=== PATIENT | female | born 1935 | race Caucasian/White ===

== ENCOUNTER 2020-09-24 14:19 | Inpatient (IN) ==
[2020-09-24] MEDS ORDERED: Ipratropium/Albuterol Neb 3 ML IH ONE (14:51)
[2020-09-24 15:10] LABS: Basophils # 0.1 K/mcL (0.0-0.2); Basophils % 0.7 %; Eosinophils # 0.5 K/mcL (0.0-0.6); Eosinophils % 6.5 %; Hematocrit 41.8 % (35.3-44.9); Hemoglobin 13.2 g/dL (11.5-15.4); Immature Granulocytes % 0.3 % (0-4); Lymphocytes # 0.7 K/mcL (0.6-4.6); Lymphocytes % 8.9 %; Mean Corpuscular HGB Conc 31.6 g/dL (31.6-35.5); Mean Corpuscular Hemoglobin 28.9 pg (28.0-33.3); Mean Corpuscular Volume 91.5 fL (83.0-100.0); Mean Platelet Volume 9.9 fL (9.4-12.4); Monocytes # 0.8 K/mcL (0.0-1.3); Monocytes % 10.6 %; Neutrophils # 5.5 K/mcL (1.6-8.9); Platelet Count 194 K/mcL (140-400); Red Blood Count 4.57 M/mcL (3.82-4.97); Red Cell Distribution Width 15.3 % (11.5-14.5); White Blood Count 7.6 K/mcL (4.3-11.1)
[2020-09-24 15:21] LABS: Bacteria,Urine Few per hpf (None-Few); Bilirubin,Urine Negative (Negative); Blood,Urine Negative (Negative); Clarity,Urine Turbid (Clear); Color,Urine Light-Yellow (Yellow); Glucose,Urine (UA) Normal (Normal); Ketones,Urine Negative (Negative); Leukocyte Esterase,Urine Small (Negative); Mucus,Urine Few per lpf (None-Few); Nitrite,Urine Negative (Negative); PH,Urine 5.5 pH Units (5.0-8.0); Protein,Urine 50 mg/dL (Neg-Trace); RBC,Urine 15-30 per hpf (0-3); Specific Gravity,Urine 1.021 (1.010-1.025); Squamous Epithelial Cell,Urine Few per hpf (None-Few); Urobilinogen,Urine Normal (Normal)
[2020-09-24 15:35] LABS: BUN/Creatinine Ratio 21 (6-26); Blood Urea Nitrogen 17 mg/dL (8-23); Calcium 8.7 mg/dL (8.6-10.3); Carbon Dioxide 25 mEq/L (23-29); Chloride 107 mEq/L (98-107); Glucose 108 mg/dL (70-105); Osmolality,Calculated 296 (280-300); Potassium 3.7 mEq/L (3.5-5.1); Sodium 142 mEq/L (136-145); Troponin I < 0.03 ng/mL (< 0.04); eGFR For African Americans > 60 (> 60); eGFR For Non-African Americans > 60 (> 60)
[2020-09-24] MEDS ORDERED: Furosemide 40 MG/4 ML VIAL IVP ONE (15:50)
[2020-09-24] MEDS ORDERED: Perflutren Lipid Microsphere 1.3 ML in 0.9 % Sodium Chloride 8.7 ML IVP PRN (17:34)
[2020-09-24 17:44] LABS: INR 2.3; Prothrombin Time 26.2 Seconds (9.4-12.1)
[2020-09-24] MEDS ORDERED: Naloxone 0.4 MG/ML INJ IVP PRN (17:55)
[2020-09-24] MEDS ORDERED: Warfarin perPT PO PRN (18:00)
[2020-09-24 19:17] LABS: Adenovirus Not Detected (Not Detect); Bordetella Pertussis Not Detected (Not Detect); Chlamydophila pneumoniae Not Detected (Not Detect); Coronavirus 229E Not Detected (Not Detect); Coronavirus HKU1 Not Detected (Not Detect); Coronavirus NL63 Not Detected (Not Detect); Coronavirus OC43 Not Detected (Not Detect); Human Metapneumovirus Not Detected (Not Detect); Human Rhinovirus/Enterovirus Not Detected (Not Detect); Influenza A Subtype 2009 H1 Not Detected (Not Detect); Influenza B Not Detected (Not Detect); Mycoplasma pneumoniae Not Detected (Not Detect); Parainfluenza Virus 1 Not Detected (Not Detect); Parainfluenza Virus 2 Not Detected (Not Detect); Parainfluenza Virus 3 Not Detected (Not Detect); Parainfluenza Virus 4 Not Detected (Not Detect); Respiratory Syncytial Virus Not Detected (Not Detect); SARS-CoV-2 Not Detected (Not Detect)
[2020-09-24] MEDS ORDERED: Furosemide 40 MG/4 ML VIAL IVP SCH (21:00)
[2020-09-24] MEDS ORDERED: *HR* Warfarin 3 MG TABLET PO ONE (21:15)
[2020-09-25 02:35] LABS: Basophils # 0.1 K/mcL (0.0-0.2); Basophils % 0.7 %; Eosinophils # 0.3 K/mcL (0.0-0.6); Eosinophils % 4.9 %; Hematocrit 42.2 % (35.3-44.9); Hemoglobin 13.3 g/dL (11.5-15.4); Immature Granulocytes % 0.4 % (0-4); Lymphocytes # 0.7 K/mcL (0.6-4.6); Lymphocytes % 10.8 %; Mean Corpuscular HGB Conc 31.5 g/dL (31.6-35.5); Mean Corpuscular Hemoglobin 29.6 pg (28.0-33.3); Mean Corpuscular Volume 93.8 fL (83.0-100.0); Mean Platelet Volume 10.3 fL (9.4-12.4); Monocytes # 0.8 K/mcL (0.0-1.3); Monocytes % 11.8 %; Neutrophils # 4.9 K/mcL (1.6-8.9); Platelet Count 189 K/mcL (140-400); Red Cell Distribution Width 15.2 % (11.5-14.5); Segmented Neutrophils % 71.4 %; White Blood Count 6.9 K/mcL (4.3-11.1)
[2020-09-25 02:44] LABS: INR 2.8; Prothrombin Time 31.6 Seconds (9.4-12.1)
[2020-09-25 02:56] LABS: Calcium 8.9 mg/dL (8.6-10.3); Magnesium 1.4 mg/dL (1.6-2.6); Potassium 3.4 mEq/L (3.5-5.1)
[2020-09-25] MEDS ORDERED: allopurinoL 100 MG TABLET PO SCH (09:00)
[2020-09-25] MEDS: carvediloL 6.25 MG TABLET PO SCH ×2 (09:39→16:06)
[2020-09-25] MEDS ORDERED: Magnesium Sulfate 1 GM/102 ML PIGGYBACK IVPB ONE (11:07)
[2020-09-25 17:19] LABS: BUN/Creatinine Ratio 27 (6-26); Blood Urea Nitrogen 25 mg/dL (8-23); Calcium 8.6 mg/dL (8.6-10.3); Carbon Dioxide 30 mEq/L (23-29); Chloride 103 mEq/L (98-107); Glucose 138 mg/dL (70-105); Magnesium 1.8 mg/dL (1.6-2.6); Osmolality,Calculated 301 (280-300); Potassium 3.2 mEq/L (3.5-5.1); Sodium 142 mEq/L (136-145); eGFR For African Americans > 60 (> 60); eGFR For Non-African Americans 59 (> 60)
[2020-09-25] MEDS ORDERED: *HR* Warfarin 3 MG TABLET PO ONE (18:00)
[2020-09-26 01:39] LABS: INR 2.8; Prothrombin Time 31.6 Seconds (9.4-12.1)
[2020-09-26 01:41] LABS: Basophils # 0.1 K/mcL (0.0-0.2); Basophils % 0.8 %; Eosinophils # 0.5 K/mcL (0.0-0.6); Eosinophils % 8.1 %; Hematocrit 44.1 % (35.3-44.9); Hemoglobin 13.7 g/dL (11.5-15.4); Immature Granulocytes % 0.5 % (0-4); Lymphocytes # 0.8 K/mcL (0.6-4.6); Lymphocytes % 11.7 %; Mean Corpuscular HGB Conc 31.1 g/dL (31.6-35.5); Mean Corpuscular Hemoglobin 28.6 pg (28.0-33.3); Mean Corpuscular Volume 92.1 fL (83.0-100.0); Mean Platelet Volume 10.1 fL (9.4-12.4); Monocytes # 0.8 K/mcL (0.0-1.3); Neutrophils # 4.2 K/mcL (1.6-8.9); Platelet Count 184 K/mcL (140-400); Red Blood Count 4.79 M/mcL (3.82-4.97); Red Cell Distribution Width 15.1 % (11.5-14.5); Segmented Neutrophils % 65.9 %; White Blood Count 6.4 K/mcL (4.3-11.1)
[2020-09-26 01:54] LABS: BUN/Creatinine Ratio 27 (6-26); Blood Urea Nitrogen 25 mg/dL (8-23); Calcium 8.6 mg/dL (8.6-10.3); Carbon Dioxide 30 mEq/L (23-29); Chloride 105 mEq/L (98-107); Glucose 129 mg/dL (70-105); Osmolality,Calculated 300 (280-300); Potassium 3.7 mEq/L (3.5-5.1); Sodium 142 mEq/L (136-145); eGFR For African Americans > 60 (> 60); eGFR For Non-African Americans 57 (> 60)
[2020-09-26 06:55] VITALS: BP 135/66
[2020-09-26] MEDS: carvediloL 6.25 MG TABLET PO SCH (09:12)
[2020-09-26] MEDS ORDERED: *HR* Warfarin 3 MG TABLET PO ONE (18:00)
== END 2020-09-26 14:55 | disposition home or self-care (01) | DRG 293 ==
LOC: 3BNU 14:19 → EMEROOARM 14:19 → 3BNU 20:25
PROVIDERS: ADMIT Student in an Organized Health Care Education/Training Program; ATTEND Student in an Organized Health Care Education/Training Program

== ENCOUNTER 2021-03-10 21:38 | Observation (INO) ==
[2021-03-10 22:28] LABS: Basophils # 0.1 K/mcL (0.0-0.2); Basophils % 0.6 %; Eosinophils # 0.6 K/mcL (0.0-0.6); Eosinophils % 6.4 %; Hematocrit 43.2 % (35.3-44.9); Hemoglobin 13.4 g/dL (11.5-15.4); Immature Granulocytes % 0.7 % (0-4); Lymphocytes # 0.8 K/mcL (0.6-4.6); Lymphocytes % 8.8 %; Mean Corpuscular Hemoglobin 28.3 pg (28.0-33.3); Mean Corpuscular Volume 91.1 fL (83.0-100.0); Mean Platelet Volume 9.9 fL (9.4-12.4); Monocytes # 0.8 K/mcL (0.0-1.3); Monocytes % 8.7 %; Neutrophils # 6.5 K/mcL (1.6-8.9); Platelet Count 223 K/mcL (140-400); Red Blood Count 4.74 M/mcL (3.82-4.97); Red Cell Distribution Width 15.2 % (11.5-14.5); Segmented Neutrophils % 74.8 %; White Blood Count 8.6 K/mcL (4.3-11.1)
[2021-03-10 22:53] LABS: BUN/Creatinine Ratio 17 (6-26); Blood Urea Nitrogen 14 mg/dL (8-23); Carbon Dioxide 28 mEq/L (23-29); Chloride 108 mEq/L (98-107); Glucose 103 mg/dL (70-105); Osmolality,Calculated 301 (280-300); Potassium 3.4 mEq/L (3.5-5.1); Sodium 145 mEq/L (136-145); Troponin I < 0.03 ng/mL (< 0.04); eGFR For African Americans > 60 (> 60); eGFR For Non-African Americans > 60 (> 60)
[2021-03-11] MEDS ORDERED: Furosemide 40 MG/4 ML VIAL IVP ONE (00:13)
[2021-03-11] MEDS ORDERED: Azithromycin 500 MG in 0.9 % Sodium Chloride 250 ML IVPB ONE (00:25)
[2021-03-11] MEDS ORDERED: carvediloL 6.25 MG TABLET PO ONE (01:28)
[2021-03-11] MEDS ORDERED: Naloxone 0.4 MG/ML INJ IVP PRN (03:02)
[2021-03-11] MEDS ORDERED: Perflutren Lipid Microsphere 1.3 ML in 0.9 % Sodium Chloride 8.7 ML IVP PRN (03:03)
[2021-03-11 06:25] LABS: Hematocrit 42.3 % (35.3-44.9); Hemoglobin 13.3 g/dL (11.5-15.4); Mean Corpuscular HGB Conc 31.4 g/dL (31.6-35.5); Mean Corpuscular Hemoglobin 28.6 pg (28.0-33.3); Mean Platelet Volume 9.7 fL (9.4-12.4); Platelet Count 204 K/mcL (140-400); Red Blood Count 4.65 M/mcL (3.82-4.97); Red Cell Distribution Width 15.2 % (11.5-14.5); White Blood Count 8.2 K/mcL (4.3-11.1)
[2021-03-11 06:37] LABS: INR 2.4; Prothrombin Time 27.5 Seconds (9.4-12.1)
[2021-03-11 06:44] LABS: BUN/Creatinine Ratio 15 (6-26); Blood Urea Nitrogen 13 mg/dL (8-23); Calcium 8.9 mg/dL (8.6-10.3); Carbon Dioxide 33 mEq/L (23-29); Chloride 106 mEq/L (98-107); Glucose 131 mg/dL (70-105); Osmolality,Calculated 304 (280-300); Potassium 3.5 mEq/L (3.5-5.1); Sodium 146 mEq/L (136-145); eGFR For African Americans > 60 (> 60); eGFR For Non-African Americans > 60 (> 60)
[2021-03-11] MEDS: Furosemide 40 MG/4 ML VIAL IVP SCH (07:39)
[2021-03-11] MEDS ORDERED: Warfarin perPT PO PRN (18:00)
[2021-03-11] MEDS ORDERED: *HR* Warfarin 3 MG TABLET PO ONE (18:00)
[2021-03-12 04:20] LABS: BUN/Creatinine Ratio 26 (6-26); Blood Urea Nitrogen 24 mg/dL (8-23); Calcium 8.6 mg/dL (8.6-10.3); Carbon Dioxide 31 mEq/L (23-29); Chloride 105 mEq/L (98-107); Glucose 129 mg/dL (70-105); Osmolality,Calculated 304 (280-300); Potassium 3.2 mEq/L (3.5-5.1); Sodium 144 mEq/L (136-145); eGFR For African Americans > 60 (> 60); eGFR For Non-African Americans 57 (> 60)
[2021-03-12 04:27] LABS: INR 2.2; Prothrombin Time 24.9 Seconds (9.4-12.1)
[2021-03-12 07:44] VITALS: BP 125/75
[2021-03-12] MEDS ORDERED: Azithromycin 250 MG TABLET PO SCH (09:30)
[2021-03-12] MEDS: Furosemide 40 MG/4 ML VIAL IVP SCH (10:34)
[2021-03-12] MEDS ORDERED: Ipratropium/Albuterol Neb 3 ML IH SCH (12:00)
[2021-03-12] MEDS ORDERED: *HR* Warfarin 3 MG TABLET PO ONE (18:00)
[2021-03-13] MEDS ORDERED: carvediloL 6.25 MG TABLET PO SCH (08:00)
[2021-03-13] MEDS ORDERED: Furosemide 40 MG TABLET PO SCH (09:00)
== END 2021-03-12 15:42 | disposition home or self-care (01) ==
LOC: EMEROOARM 21:38 → 2ANU 21:38 → SUATTDRO 03-11 02:17 → 2ANU 03-11 03:00
PROVIDERS: ADMIT Internal Medicine; ATTEND General Practice

== ENCOUNTER 2021-04-30 17:29 | Inpatient (IN) ==
[2021-04-30 17:56] LABS: Basophils # 0.1 K/mcL (0.0-0.2); Basophils % 0.7 %; Eosinophils # 0.7 K/mcL (0.0-0.6); Eosinophils % 6.8 %; Hematocrit 41.8 % (35.3-44.9); Hemoglobin 13.1 g/dL (11.5-15.4); Immature Granulocytes % 0.5 % (0-4); Lymphocytes # 0.7 K/mcL (0.6-4.6); Lymphocytes % 6.8 %; Mean Corpuscular HGB Conc 31.3 g/dL (31.6-35.5); Mean Corpuscular Hemoglobin 28.7 pg (28.0-33.3); Mean Corpuscular Volume 91.7 fL (83.0-100.0); Mean Platelet Volume 9.8 fL (9.4-12.4); Monocytes # 0.7 K/mcL (0.0-1.3); Monocytes % 6.9 %; Neutrophils # 8.3 K/mcL (1.6-8.9); Platelet Count 256 K/mcL (140-400); Red Blood Count 4.56 M/mcL (3.82-4.97); Red Cell Distribution Width 15.4 % (11.5-14.5); Segmented Neutrophils % 78.3 %; White Blood Count 10.6 K/mcL (4.3-11.1)
[2021-04-30] MEDS ORDERED: Furosemide 40 MG/4 ML VIAL IVP ONE (17:56)
[2021-04-30] MEDS ORDERED: Nitroglycerin 1 INCH/GM PACKET TP ONE (17:56)
[2021-04-30 18:23] LABS: BUN/Creatinine Ratio 21 (6-26); Blood Urea Nitrogen 25 mg/dL (8-23); Carbon Dioxide 29 mEq/L (23-29); Chloride 103 mEq/L (98-107); Glucose 247 mg/dL (70-105); Osmolality,Calculated 309 (280-300); Potassium 3.3 mEq/L (3.5-5.1); Sodium 143 mEq/L (136-145); Troponin I < 0.03 ng/mL (< 0.04); eGFR For African Americans 51 (> 60); eGFR For Non-African Americans 42 (> 60)
[2021-04-30] MEDS ORDERED: Potassium Effervescent 25 MEQ TABLET.EFF PO ONE (18:31)
[2021-04-30 18:37] LABS: INR 2.9; Prothrombin Time 32.7 Seconds (9.4-12.1)
[2021-04-30] MEDS ORDERED: Acetaminophen 325 MG TABLET PO PRN (20:13)
[2021-04-30] MEDS ORDERED: Ondansetron 4 MG/2 ML VIAL IVP PRN (20:13)
[2021-04-30 20:17] LABS: Bilirubin,Urine Negative (Negative); Blood,Urine Negative (Negative); Clarity,Urine Clear (Clear); Color,Urine Colorless (Yellow); Glucose,Urine (UA) Normal (Normal); Hyaline Casts,Urine Few per lpf (None Seen); Ketones,Urine Negative (Negative); Leukocyte Esterase,Urine Trace (Negative); Mucus,Urine Few per lpf (None-Few); Nitrite,Urine Negative (Negative); Protein,Urine Negative (Neg-Trace); RBC,Urine 0-3 per hpf (0-3); Squamous Epithelial Cell,Urine Few per hpf (None-Few); Urobilinogen,Urine Normal (Normal)
[2021-04-30] MEDS ORDERED: *HR* Phytonadione 10 MG/ML AMPUL SQ ONE (20:18)
[2021-04-30] MEDS ORDERED: *HR* Dextrose 50 % in Water (Vial) 50 ML VIAL IVP PRN (20:29)
[2021-04-30] MEDS ORDERED: Dextrose Gel 15 GM/37.5 ML TUBE PO PRN ×2 (20:29)
[2021-04-30] MEDS ORDERED: D5% in Water 1,000 ML IVC PRN (20:29)
[2021-05-01] MEDS: Insulin LISPRO 300 UNITS/3 ML VIAL SUBQ SCH ×6 (01:01→20:23)
[2021-05-01] MEDS ORDERED: Melatonin 3 MG TABLET PO PRN (01:22)
[2021-05-01 05:51] LABS: INR 2.8; Prothrombin Time 31.6 Seconds (9.4-12.1)
[2021-05-01 06:09] LABS: Calcium 8.6 mg/dL (8.6-10.3); Magnesium 1.5 mg/dL (1.6-2.6); Potassium 3.4 mEq/L (3.5-5.1)
[2021-05-01 07:01] LABS: Estimated Average Glucose 140 mg/dl; Hemoglobin A1C 6.5 %
[2021-05-01] MEDS: carvediloL 6.25 MG TABLET PO SCH ×3 (08:59→18:30)
[2021-05-01] MEDS: Ipratropium/Albuterol Neb 3 ML IH SCH ×3 (16:30→23:48)
[2021-05-01] MEDS: Furosemide 40 MG/4 ML VIAL IVP SCH (20:22)
[2021-05-02 01:53] LABS: Basophils # 0.1 K/mcL (0.0-0.2); Basophils % 0.7 %; Hematocrit 39.9 % (35.3-44.9); Hemoglobin 12.8 g/dL (11.5-15.4); Immature Granulocytes % 0.4 % (0-4); Lymphocytes # 0.9 K/mcL (0.6-4.6); Lymphocytes % 7.6 %; Mean Corpuscular HGB Conc 32.1 g/dL (31.6-35.5); Mean Corpuscular Hemoglobin 29.7 pg (28.0-33.3); Mean Corpuscular Volume 92.6 fL (83.0-100.0); Mean Platelet Volume 9.8 fL (9.4-12.4); Neutrophils # 8.3 K/mcL (1.6-8.9); Platelet Count 245 K/mcL (140-400); Red Blood Count 4.31 M/mcL (3.82-4.97); Red Cell Distribution Width 15.3 % (11.5-14.5); Segmented Neutrophils % 73.3 %; White Blood Count 11.3 K/mcL (4.3-11.1)
[2021-05-02 02:08] LABS: Calcium 8.6 mg/dL (8.6-10.3); Potassium 3.2 mEq/L (3.5-5.1)
[2021-05-02] MEDS: Ipratropium/Albuterol Neb 3 ML IH SCH ×6 (03:38→23:34)
[2021-05-02] MEDS: Aspirin 81 MG TAB.CHEW PO SCH (07:36)
[2021-05-02] MEDS: Furosemide 40 MG/4 ML VIAL IVP SCH (07:37)
[2021-05-02] MEDS: Insulin LISPRO 300 UNITS/3 ML VIAL SUBQ SCH ×4 (07:43→21:38)
[2021-05-02] MEDS: carvediloL 6.25 MG TABLET PO SCH (17:57)
[2021-05-03 02:45] LABS: Basophils # 0.1 K/mcL (0.0-0.2); Basophils % 0.5 %; Hematocrit 36.2 % (35.3-44.9); Hemoglobin 11.6 g/dL (11.5-15.4); Immature Granulocytes % 0.4 % (0-4); Lymphocytes # 0.8 K/mcL (0.6-4.6); Lymphocytes % 8.3 %; Mean Corpuscular Hemoglobin 29.3 pg (28.0-33.3); Mean Corpuscular Volume 91.4 fL (83.0-100.0); Monocytes # 0.9 K/mcL (0.0-1.3); Monocytes % 9.4 %; Neutrophils # 7.1 K/mcL (1.6-8.9); Platelet Count 208 K/mcL (140-400); Red Blood Count 3.96 M/mcL (3.82-4.97); Red Cell Distribution Width 15.3 % (11.5-14.5); Segmented Neutrophils % 71.4 %; White Blood Count 9.9 K/mcL (4.3-11.1)
[2021-05-03 03:03] LABS: Calcium 8.3 mg/dL (8.6-10.3); Magnesium 1.8 mg/dL (1.6-2.6); Potassium 3.5 mEq/L (3.5-5.1)
[2021-05-03 03:18] LABS: INR 2.1; Prothrombin Time 23.5 Seconds (9.4-12.1)
[2021-05-03] MEDS: Ipratropium/Albuterol Neb 3 ML IH SCH ×6 (03:46→23:36)
[2021-05-03] MEDS: Insulin LISPRO 300 UNITS/3 ML VIAL SUBQ SCH ×4 (08:41→20:24)
[2021-05-03] MEDS: Aspirin 81 MG TAB.CHEW PO SCH (08:42)
[2021-05-03] MEDS: Furosemide 40 MG TABLET PO SCH (08:42)
[2021-05-03] MEDS: carvediloL 6.25 MG TABLET PO SCH ×2 (08:42→17:47)
[2021-05-04] MEDS: Ipratropium/Albuterol Neb 3 ML IH SCH ×6 (03:43→23:44)
[2021-05-04 08:12] LABS: INR 1.4; Prothrombin Time 16.5 Seconds (9.4-12.1)
[2021-05-04] MEDS: carvediloL 6.25 MG TABLET PO SCH ×2 (08:30→17:57)
[2021-05-04] MEDS: Furosemide 40 MG TABLET PO SCH (08:30)
[2021-05-04] MEDS: Aspirin 81 MG TAB.CHEW PO SCH (08:30)
[2021-05-04] MEDS: Insulin LISPRO 300 UNITS/3 ML VIAL SUBQ SCH ×4 (08:30→21:08)
[2021-05-04 08:45] LABS: Alanine Aminotransferase 6 Units/L (7-52); Albumin 3.7 g/dL (3.5-5.7); Albumin/Globulin Ratio 1.5 (1.1-2.2); Alkaline Phosphatase 52 Units/L (34-104); Aspartate Amino Transferase 21 Units/L (13-39); BUN/Creatinine Ratio 35 (6-26); Bilirubin,Total 0.7 mg/dL (0.3-1.0); Blood Urea Nitrogen 36 mg/dL (8-23); Calcium 8.4 mg/dL (8.6-10.3); Carbon Dioxide 27 mEq/L (23-29); Chloride 104 mEq/L (98-107); Globulin 2.4 g/dL (2.4-3.5); Glucose 141 mg/dL (70-105); Osmolality,Calculated 305 (280-300); Potassium 3.7 mEq/L (3.5-5.1); Sodium 142 mEq/L (136-145); Total Protein 6.1 g/dL (6.4-8.9); eGFR For African Americans > 60 (> 60); eGFR For Non-African Americans 52 (> 60)
[2021-05-04 18:50] LABS: Total Protein,Pleural Fluid 3.9 g/dL
[2021-05-04 19:02] LABS: Lactate Dehydrogenase 446 Units/L (140-271); Total Protein 6.6 g/dL (6.4-8.9)
[2021-05-04 19:12] LABS: RBC,Pleural Fluid 3118000 RBC/mcL
[2021-05-04 20:20] LABS: Appearance of Pleural Fl Bloody (Clear); Basophils,Pleural Fluid 0 %
[2021-05-04] MEDS ORDERED: GuaiFENesin Liq 200 MG/10 ML UDC PO PRN (22:21)
[2021-05-05] MEDS: Ipratropium/Albuterol Neb 3 ML IH SCH ×4 (04:34→16:03)
[2021-05-05 05:19] LABS: Hemoglobin 11.7 g/dL (11.5-15.4); Mean Corpuscular HGB Conc 32.5 g/dL (31.6-35.5); Mean Corpuscular Hemoglobin 29.8 pg (28.0-33.3); Mean Corpuscular Volume 91.8 fL (83.0-100.0); Mean Platelet Volume 9.9 fL (9.4-12.4); Platelet Count 215 K/mcL (140-400); Red Blood Count 3.92 M/mcL (3.82-4.97); Red Cell Distribution Width 15.2 % (11.5-14.5); White Blood Count 8.8 K/mcL (4.3-11.1)
[2021-05-05 05:32] LABS: Calcium 8.6 mg/dL (8.6-10.3); Potassium 3.5 mEq/L (3.5-5.1)
[2021-05-05] MEDS: Insulin LISPRO 300 UNITS/3 ML VIAL SUBQ SCH ×2 (08:33→12:25)
[2021-05-05] MEDS: Furosemide 40 MG TABLET PO SCH (08:47)
[2021-05-05] MEDS: Aspirin 81 MG TAB.CHEW PO SCH (08:47)
[2021-05-05] MEDS: carvediloL 6.25 MG TABLET PO SCH (08:47)
[2021-05-05 12:08] VITALS: BP 137/54
[2021-05-07 07:22] LABS: Fluid Source for Cholesterol PLEURAL FLUID
[2021-05-07 10:00] LABS: Cholesterol,Body Fluid 106 mg/dL
== END 2021-05-05 16:13 | disposition home health service (06) | DRG 291 ==
LOC: EMEROOARM 17:29 → CDU 17:29 → SUATTDRO 19:58 → CDU 20:25 → SUATTDRO 05-01 17:29 → 2ANU 05-02 16:54
PROVIDERS: ADMIT Family Medicine; ATTEND Internal Medicine